=== PATIENT | female | born 1940 | race Caucasian/White ===

== ENCOUNTER → 2016-10-02 | Outpatient (CLI) | payer MEDICARE, OTHER ==
[~2016-10-02] MED LIST: ALLO100 PO; ALLO100T PO; ALTA5CAP4 PO; ASPI1TAB69 PO; CELE20TA PO; CITA10TA4 PO; CRAN250C PO; DOXY100C PO; FLUT50SP EACH NARE; HYDR12.57 PO; ISOS60TA PO; MIAC200S NASAL; MIRA33504 PO; MONT10TA2 PO; MULT-6 PO; NUTRPAK PO; PLAV75TA29 PO; POTA-243 PO; PRIL20CA9 PO; ROSU40 PO; SENN8.6T5 PO; TRAM50TA PO; VAGI10TA VAGINAL; VESI10TA PO; [UNRECOGNIZED DRUG - CODE] PO
[2016-10-02 16:55] LABS: ALT (GPT) 32 U/L (10-53); ANION GAP 8 MEQ/L (5-15); AST (GOT) 19 U/L (15-37); BICARBONATE 28.9 MEQ/L (21.0-32.0); BLOOD UREA NITROGEN 21 MG/DL (7-18); CHLORIDE 104 MEQ/L (98-107); GLOMERULAR FILTRATION RATE 55 ML/MIN (>89); GLUCOSE,FASTING 92 MG/DL (74-99); POTASSIUM 4.1 MEQ/L (3.5-5.1); SODIUM (NA) 141 MEQ/L (136-145)
[2016-10-02 16:59] LABS: ALKALINE PHOSPHATASE 62 U/L (45-117); HDL CHOLESTEROL 52.8 MG/DL (40.0-60.0); LDL CHOLESTEROL 60 MG/DL (0-99); TOTAL BILIRUBIN ADULT 0.3 MG/DL (0.2-1.0)
[2016-10-02 17:02] LABS: CREATINE KINASE 51 U/L (26-192)
== END ==
LOC: PLAB 12:07
PROVIDERS: ATTEND Internal Medicine Interventional Cardiology
DX: R06.02 Shortness of breath (principal); E78.5 Hyperlipidemia, unspecified; Z09 Encounter for follow-up examination after completed treatment for conditions other than malignant neoplasm; Z79.899 Other long term (current) drug therapy
CPT/HCPCS: 36415; 80053; 80061; 82248; 82550

== ENCOUNTER → 2016-11-26 | Outpatient (CLI) | payer MEDICARE, OTHER ==
[~2016-11-26] MED LIST changes: -ALLO100 PO
[2016-11-26 17:16] LABS: AUTOMATED NEUTROPHIL # 3.6 TH/MM3 (1.8-7.7); BASOPHIL # 0.1 TH/MM3 (0-0.2); EOSINOPHIL # 0.1 TH/MM3 (0-0.4); EOSINOPHIL % 2.2 % (0.0-4.0); HEMATOCRIT 37.3 % (35.0-46.0); HEMO FLAGS DIFF FINAL; LYMPHOCYTE # 1.9 TH/MM3 (1.0-4.8); MEAN CELL VOLUME 94.3 FL (80.0-100.0); MEAN CORPUSCULAR HEMOGLOBIN 33.6 PG (27.0-34.0); MEAN CORPUSCULAR HGB CONC 35.7 % (32.0-36.0); MONO % 10.6 % (0.0-8.0); NEUT % 57.2 % (16.0-70.0); PLATELET COUNT 234 TH/MM3 (150-450); RED BLOOD COUNT 3.96 MIL/MM3 (4.00-5.30); RED CELL DISTRIBUTION WIDTH 13.1 % (11.6-17.2); WHITE BLOOD COUNT 6.4 TH/MM3 (4.0-11.0)
[2016-11-26 17:34] LABS: ALT (GPT) 28 U/L (10-53); ANION GAP 10 MEQ/L (5-15); AST (GOT) 13 U/L (15-37); BICARBONATE 26.7 MEQ/L (21.0-32.0); BLOOD UREA NITROGEN 22 MG/DL (7-18); CHLORIDE 105 MEQ/L (98-107); GLUCOSE,FASTING 126 MG/DL (74-99); POTASSIUM 3.7 MEQ/L (3.5-5.1); SODIUM (NA) 142 MEQ/L (136-145)
[2016-11-26 17:39] LABS: ALKALINE PHOSPHATASE 56 U/L (45-117); GLOMERULAR FILTRATION RATE 48 ML/MIN (>89); TOTAL BILIRUBIN ADULT 0.3 MG/DL (0.2-1.0)
== END ==
LOC: PLAB 14:41
PROVIDERS: ATTEND Family Medicine
DX: R53.83 Other fatigue (principal); R19.7 Diarrhea, unspecified
CPT/HCPCS: 36415; 80053; 85025

== ENCOUNTER → 2017-02-18 | Outpatient (CLI) | payer MEDICARE, OTHER ==
[~2017-02-18] MED LIST changes: -CITA10TA4 PO; -CRAN250C PO; -NUTRPAK PO; -SENN8.6T5 PO; -VAGI10TA VAGINAL
[2017-02-18 13:28] LABS: CHLORIDE 105 MEQ/L (98-107); POTASSIUM 3.6 MEQ/L (3.5-5.1); SODIUM (NA) 143 MEQ/L (136-145)
[2017-02-18 13:32] LABS: ANION GAP 9 MEQ/L (5-15); BLOOD UREA NITROGEN 34 MG/DL (7-18); GLUCOSE,FASTING 100 MG/DL (74-99)
[2017-02-18 13:35] LABS: ALT (GPT) 27 U/L (10-53); AST (GOT) 13 U/L (15-37); GLOMERULAR FILTRATION RATE 37 ML/MIN (>89)
[2017-02-18 13:37] LABS: TOTAL BILIRUBIN ADULT 0.3 MG/DL (0.2-1.0)
[2017-02-18 13:38] LABS: ALKALINE PHOSPHATASE 69 U/L (45-117)
[2017-02-18 15:49] LABS: AUTOMATED NEUTROPHIL # 3.6 TH/MM3 (1.8-7.7); BASOPHIL % 0.6 % (0.0-2.0); EOSINOPHIL # 0.1 TH/MM3 (0-0.4); EOSINOPHIL % 1.9 % (0.0-4.0); HEMATOCRIT 33.4 % (35.0-46.0); HEMO FLAGS DIFF FINAL; LYMPH % 25.8 % (9.0-44.0); LYMPHOCYTE # 1.5 TH/MM3 (1.0-4.8); MEAN CELL VOLUME 92.8 FL (80.0-100.0); MEAN CORPUSCULAR HEMOGLOBIN 32.2 PG (27.0-34.0); MEAN CORPUSCULAR HGB CONC 34.7 % (32.0-36.0); MONO % 10.9 % (0.0-8.0); NEUT % 60.8 % (16.0-70.0); PLATELET COUNT 226 TH/MM3 (150-450); RED CELL DISTRIBUTION WIDTH 14.5 % (11.6-17.2)
[2017-02-18 17:38] LABS: HEMOGLOBIN A1a 1.4 %; HEMOGLOBIN A1b 2.1 %; HEMOGLOBIN Ao 82.6 %; HEMOGLOBIN LA1C 2.3 %; HEMOGLOBIN P3 6.4 %
[2017-02-21 23:54] LABS: LYME DISEASE 18KD IGG BAND NON-REACTIVE (()); LYME DISEASE 23 IGG BAND REACTIVE (()); LYME DISEASE 23KD IGM BAND NON-REACTIVE (()); LYME DISEASE 28KD IGG BAND NON-REACTIVE (()); LYME DISEASE 30KD IGG BAND REACTIVE (()); LYME DISEASE 39 KD IGG BAND NON-REACTIVE (()); LYME DISEASE 39KD IGM BAND NON-REACTIVE (()); LYME DISEASE 41KD IGG BAND REACTIVE (()); LYME DISEASE 41KD IGM BAND NON-REACTIVE (()); LYME DISEASE 45KD IGG BAND NON-REACTIVE (()); LYME DISEASE 58KD IGG BAND NON-REACTIVE (()); LYME DISEASE 66KD IGG BAND NON-REACTIVE (()); LYME DISEASE 93KD IGG BAND NON-REACTIVE (()); LYME DISEASE IGM WB NEGATIVE (())
== END ==
LOC: PLAB 11:23
PROVIDERS: ATTEND Family Medicine
DX: R53.81 Other malaise (principal); N18.3 Chronic kidney disease, stage 3 (moderate); E78.5 Hyperlipidemia, unspecified; R73.01 Impaired fasting glucose; I50.9 Heart failure, unspecified; W57.XXXA Bitten or stung by nonvenomous insect and other nonvenomous arthropods, initial encounter
CPT/HCPCS: 36415; 80053; 83036; 83880; 84443; 85025; 86617

== ENCOUNTER → 2017-03-13 | Outpatient (CLI) | payer MEDICARE, OTHER ==
[2017-03-13 13:28] LABS: BICARBONATE 28.2 MEQ/L (21.0-32.0); POTASSIUM 4.5 MEQ/L (3.5-5.1)
[2017-03-18 19:51] LABS: LYME DISEASE 18KD IGG BAND NON-REACTIVE (()); LYME DISEASE 23 IGG BAND REACTIVE (()); LYME DISEASE 23KD IGM BAND NON-REACTIVE (()); LYME DISEASE 28KD IGG BAND NON-REACTIVE (()); LYME DISEASE 30KD IGG BAND REACTIVE (()); LYME DISEASE 39 KD IGG BAND NON-REACTIVE (()); LYME DISEASE 39KD IGM BAND NON-REACTIVE (()); LYME DISEASE 41KD IGG BAND REACTIVE (()); LYME DISEASE 41KD IGM BAND NON-REACTIVE (()); LYME DISEASE 45KD IGG BAND NON-REACTIVE (()); LYME DISEASE 58KD IGG BAND NON-REACTIVE (()); LYME DISEASE 66KD IGG BAND NON-REACTIVE (()); LYME DISEASE 93KD IGG BAND NON-REACTIVE (()); LYME DISEASE IGM WB NEGATIVE (())
== END ==
LOC: PLAB 09:22
PROVIDERS: ATTEND Family Medicine
DX: A69.20 Lyme disease, unspecified (principal); E06.9 Thyroiditis, unspecified; N28.9 Disorder of kidney and ureter, unspecified
CPT/HCPCS: 36415; 80048; 84443; 86617

== ENCOUNTER → 2017-06-05 | Outpatient (CLI) | payer MEDICARE, OTHER ==
[~2017-06-05] MED LIST changes: -DOXY100C PO; +ESTR0.62 VAGINAL; +GABA300C5 PO; +LYRI100C PO
[2017-06-05 18:03] LABS: BACTERIA, URINE FEW /hpf; BLOOD, URINE MOD (NEG); GLUCOSE,URINE NEG (NEG); KETONE, URINE NEG (NEG); NITRITE,URINE NEG (NEG); SQUAMOUS EPITHELIAL CELL URINE 1 /hpf (0-5); URINE COLOR YELLOW (YELLW/STRAW)
== END ==
LOC: PLAB 14:36
PROVIDERS: ATTEND Urology
DX: R30.0 Dysuria (principal); R39.0 Extravasation of urine; B96.20 Unspecified Escherichia coli [E. coli] as the cause of diseases classified elsewhere
CPT/HCPCS: 81001; 87077; 87086; 87186

== ENCOUNTER → 2017-07-03 | Day surgery (SDC) | payer MEDICARE, OTHER ==
[~2017-07-03] MED LIST changes: +BUPIVACAINE HCL PF 0.75% 30 ML VIAL ONE; +IOHEXOL 180 MG/ML 20 ML VIAL (for RAD DIAG) IT ONE; +LIDOCAINE HCL 1% PF 30 ML VIAL INFIL ONE; +PROPOFOL 200 MG/20 ML AMP IV ONE; +TRIAMCINOLONE ACETONIDE 40 MG/ML VIAL NERV BLOCK ONE
--- NOTE | 2017-07-03 11:37 | M6 ---
cc: Gisel CLARK DATE 07/03/2017 DATE OF 1940 PROCEDURE Fluoroscopically guided superior hypogastric plexus block and ganglion IMPAR block. PROCEDURE NOTE History and physical was completed and signed. Consent was signed. Procedure site was marked. Medications were listed and reconciled. Pain score was recorded. Allergies were noted. Time out was taken. Fluoroscopy time was recorded where applicable. Sedation was administered or directed by Dr. Clark. The patient was given oxygen. The patient was monitored by a registered nurse. Total procedure time was greater than 15 minutes. IV was started, blood pressure cuff, pulse oximeter and EKG were applied. The patient was placed in the prone position on a Phillip table sedated with small amounts of propofol titrated to effect. Vital signs were monitored and remained stable throughout the procedure. The sacral and coccygeal area was prepped with alcohol and 10% Betadine solution and draped with sterile drapes. Fluoroscopy was used to visualize the sacrococcygeal ligament. Then a blunt bevel 22-gauge needle was advanced using [id number] technique through the sacrococcygeal ligament and into the retroperitoneal space. Omnipaque dye was seen to spread in a smooth linear fashion along the anterior surface of the sacrum all way up to L5. Then the patient was given 18 mL of Marcaine 0.375% which contained 40 mg of Kenalog. Following this, the patient was taken to the recovery room with stable vital signs neurologically intact. She will be evaluated immediately and with followup to determine if she has a subjective decrease in the usual pain and a corresponding objective increase in her functional capabilities. This patient has severe burning pain in her bladder with sharp stabbing pains when she urinates, so we will be talking with her tomorrow if there is a change in these symptoms. MD YSED Rodríguez/TODD /10:29 AM /11:25 AM
== END | disposition home or self-care (01) ==
LOC: PHSDC 08:33
PROVIDERS: ATTEND Pain Medicine Interventional Pain Medicine
DX: R39.89 Other symptoms and signs involving the genitourinary system (principal); R30.9 Painful micturition, unspecified
CPT/HCPCS: 64517; 77002; 99152; J3301; Q9965

== ENCOUNTER → 2017-07-09 | Outpatient (CLI) | payer MEDICARE, OTHER ==
[~2017-07-09] MED LIST changes: -BUPIVACAINE HCL PF 0.75% 30 ML VIAL ONE; -IOHEXOL 180 MG/ML 20 ML VIAL (for RAD DIAG) IT ONE; -LIDOCAINE HCL 1% PF 30 ML VIAL INFIL ONE; +MECL-62 PO; -PROPOFOL 200 MG/20 ML AMP IV ONE; -TRIAMCINOLONE ACETONIDE 40 MG/ML VIAL NERV BLOCK ONE
[2017-07-09 16:31] LABS: ALBUMIN 3.9 GM/DL (3.4-5.0); ALT (GPT) 39 U/L (10-53); AST (GOT) 20 U/L (15-37); BICARBONATE 27.1 MEQ/L (21.0-32.0); BLOOD UREA NITROGEN 31 MG/DL (7-18); CALCIUM 10.2 MG/DL (8.5-10.1); CHLORIDE 103 MEQ/L (98-107); CREATININE 1.12 MG/DL (0.50-1.00); GLOMERULAR FILTRATION RATE 47 ML/MIN (>89); GLUCOSE,FASTING 94 MG/DL (74-99); SODIUM (NA) 137 MEQ/L (136-145)
[2017-07-09 16:32] LABS: CHOLESTEROL 188 MG/DL (120-200); DIRECT BILIRUBIN ADULT 0.1 MG/DL (0.0-0.2); TRIGLYCERIDES 100 MG/DL (42-150)
[2017-07-09 16:35] LABS: ALKALINE PHOSPHATASE 75 U/L (45-117); CHOLESTEROL/ HDL RATIO 2.55 RATIO; HDL CHOLESTEROL 73.5 MG/DL (40.0-60.0); LDL CHOLESTEROL 95 MG/DL (0-99); TOTAL BILIRUBIN ADULT 0.2 MG/DL (0.2-1.0); TOTAL PROTEIN 8.3 GM/DL (6.4-8.2)
== END ==
LOC: PLAB 13:26
PROVIDERS: ATTEND Internal Medicine Interventional Cardiology
DX: I25.10 Atherosclerotic heart disease of native coronary artery without angina pectoris (principal); E78.5 Hyperlipidemia, unspecified; I10 Essential (primary) hypertension
CPT/HCPCS: 36415; 80053; 80061; 82248; 82550

== ENCOUNTER → 2017-07-29 | Outpatient (CLI) | payer MEDICARE, OTHER ==
[~2017-07-29] MED LIST changes: +KLOR10TA PO; -POTA-243 PO; -VESI10TA PO; +VESI10TA2 PO
[2017-07-29 16:18] LABS: BASOPHIL % 0.6 % (0.0-2.0); EOSINOPHIL # 0.2 TH/MM3 (0-0.4); EOSINOPHIL % 3.8 % (0.0-4.0); HEMO FLAGS DIFF FINAL; LYMPHOCYTE # 1.4 TH/MM3 (1.0-4.8); MEAN CELL VOLUME 92.8 FL (80.0-100.0); MEAN CORPUSCULAR HEMOGLOBIN 31.3 PG (27.0-34.0); MEAN CORPUSCULAR HGB CONC 33.8 % (32.0-36.0); MONO % 11.5 % (0.0-8.0); NEUT % 62.1 % (16.0-70.0); PLATELET COUNT 217 TH/MM3 (150-450); RED BLOOD COUNT 4.21 MIL/MM3 (4.00-5.30); RED CELL DISTRIBUTION WIDTH 14.2 % (11.6-17.2); WHITE BLOOD COUNT 6.4 TH/MM3 (4.0-11.0)
== END ==
LOC: PLAB 14:28
PROVIDERS: ATTEND Family Medicine
DX: K92.1 Melena (principal)
CPT/HCPCS: 36415; 85025

== ENCOUNTER → 2017-09-04 | Outpatient (CLI) | payer MEDICARE, OTHER ==
[2017-09-04 16:38] LABS: BASOPHIL % 0.6 % (0.0-2.0); EOSINOPHIL # 0.2 TH/MM3 (0-0.4); EOSINOPHIL % 2.2 % (0.0-4.0); HEMATOCRIT 36.5 % (35.0-46.0); HEMO FLAGS DIFF FINAL; LYMPHOCYTE # 1.7 TH/MM3 (1.0-4.8); MEAN CELL VOLUME 93.3 FL (80.0-100.0); MEAN CORPUSCULAR HEMOGLOBIN 31.4 PG (27.0-34.0); MEAN CORPUSCULAR HGB CONC 33.7 % (32.0-36.0); MONO % 14.1 % (0.0-8.0); NEUT % 58.1 % (16.0-70.0); PLATELET COUNT 282 TH/MM3 (150-450); RED BLOOD COUNT 3.92 MIL/MM3 (4.00-5.30); RED CELL DISTRIBUTION WIDTH 15.1 % (11.6-17.2); WHITE BLOOD COUNT 6.9 TH/MM3 (4.0-11.0)
[2017-09-04 16:51] LABS: ANION GAP 8 MEQ/L (5-15); AST (GOT) 12 U/L (15-37); BICARBONATE 27.5 MEQ/L (21.0-32.0); BLOOD UREA NITROGEN 21 MG/DL (7-18); CHLORIDE 103 MEQ/L (98-107); GLOMERULAR FILTRATION RATE 47 ML/MIN (>89); GLUCOSE,FASTING 90 MG/DL (74-99); POTASSIUM 3.6 MEQ/L (3.5-5.1); SODIUM (NA) 138 MEQ/L (136-145)
[2017-09-04 17:15] LABS: ALKALINE PHOSPHATASE 75 U/L (45-117); ALT (GPT) 19 U/L (10-53); HDL CHOLESTEROL 47.1 MG/DL (40.0-60.0); LDL CHOLESTEROL 167 MG/DL (0-99); TOTAL BILIRUBIN ADULT 0.3 MG/DL (0.2-1.0)
[2017-09-04 17:17] LABS: BACTERIA, URINE FEW /hpf; BLOOD, URINE LARGE (NEG); GLUCOSE,URINE NEG (NEG); KETONE, URINE NEG (NEG); MUCUS URINE FEW /lpf (OCC); NITRITE,URINE NEG (NEG); PH, URINE 6.5 (5.0-8.5); SQUAMOUS EPITHELIAL CELL URINE 24 /hpf (0-5); URINE COLOR LIGHT-GREEN (YELLW/STRAW)
[2017-09-04 17:35] LABS: HEMOGLOBIN A1a 2.4 %; HEMOGLOBIN A1b 1.8 %; HEMOGLOBIN Ao 83.5 %; HEMOGLOBIN LA1C 2.2 %; HEMOGLOBIN P3 5.5 %
== END ==
LOC: PLAB 13:03
PROVIDERS: ATTEND Internal Medicine Gastroenterology
DX: R10.819 Abdominal tenderness, unspecified site (principal); Z87.448 Personal history of other diseases of urinary system
CPT/HCPCS: 36415; 80053; 80061; 81001; 82306; 82607; 82746; 83036; 84443; 85025

== ENCOUNTER → 2017-10-01 | Outpatient (CLI) | payer MEDICARE, OTHER ==
[2017-10-01 16:41] LABS: CARCINOEMBRYONIC ANTIGEN 4.7 NG/ML (0.2-5.0)
[2017-10-01 17:14] LABS: CA 125 22.6 U/ML (0.0-30.2)
== END ==
LOC: PLAB 12:16
PROVIDERS: ATTEND Internal Medicine Gastroenterology
DX: R10.9 Unspecified abdominal pain (principal); R93.5 Abnormal findings on diagnostic imaging of other abdominal regions, including retroperitoneum; R63.4 Abnormal weight loss
CPT/HCPCS: 36415; 82105; 82378; 86304

== ENCOUNTER → 2017-11-11 | Day surgery (SDC) | payer MEDICARE, OTHER ==
[~2017-11-11] MED LIST changes: +BUPIVACAINE HCL PF 0.75% 30 ML VIAL ONE; +CYANOCOBALAMIN 1000 MCG/ML VIAL ONE; +PROPOFOL 200 MG/20 ML AMP IV ONE; +SODIUM CHLORIDE 0.9% 10 ML VIAL ONE; +TRIAMCINOLONE ACETONIDE 40 MG/ML VIAL NERV BLOCK ONE
--- NOTE | 2017-11-11 14:29 | M5 ---
cc: Gisel Clark MD DATE OF CONSULT: 11/11/2017 PROCEDURE: Bilateral pudendal nerve block. History and physical was completed and signed. Consent was signed. Procedure site was marked. Medications were listed and reconciled. Pain score was recorded. Allergies were noted. Time out was taken. Fluoroscopy time was recorded where applicable. Sedation was administered or directed by Dr. Clark. The patient was given oxygen. The patient was monitored by a registered nurse. Total procedure time was greater than 15 minutes. IV was started. Blood pressure cuff, pulse oximeter, and EKG were applied. The patient was placed in the supine position, sedated with small amounts of propofol, titrated to effect. Vital signs were monitored and remained stable throughout the procedure. The perineum was prepped with alcohol and Betadine. The ischial tuberosities were palpated on each side, then a 3-1/2 inch 22 gauge spinal needle was inserted down to contact the ischial tuberosity on each side and then redirected just medial to the ischial tuberosity. There was negative aspiration for blood or any other type of fluid and the patient was given 8 mL of Marcaine 0.75% which contained 20 mg of Kenalog and 1000 mcg of vitamin B12 at each location. Following this, the patient was taken to the recovery room with stable vital signs, neurologically intact. The patient will be evaluated immediately and will follow up to determine if she has a subjective decrease in her usual pain which is located around her labia and perineal area. If she does obtain significant relief, then I would talk with the patient about a trial of spinal cord stimulation. Gisel Clark MD WRM/TI/ , 07:40 AM , 12:17 PM
== END | disposition home or self-care (01) ==
LOC: PHSDC 06:29
PROVIDERS: ATTEND Pain Medicine Interventional Pain Medicine
DX: R10.9 Unspecified abdominal pain (principal); M54.5 Low back pain
CPT/HCPCS: 64430; 99152; J3301; J3420

== ENCOUNTER → 2017-12-15 | Outpatient (CLI) | payer MEDICARE, OTHER ==
[~2017-12-15] MED LIST changes: +ASPI1TAB57 PO; -BUPIVACAINE HCL PF 0.75% 30 ML VIAL ONE; +CALC200S NASAL; +CENTCHW4 CHEW; +CRAN200C2 PO; -CYANOCOBALAMIN 1000 MCG/ML VIAL ONE; +DILT-46 PO; +HYDR-3516 PO; +OMEP20TA93 PO; +POLY17S PO; -PROPOFOL 200 MG/20 ML AMP IV ONE; -SODIUM CHLORIDE 0.9% 10 ML VIAL ONE; -TRAM50TA PO; -TRIAMCINOLONE ACETONIDE 40 MG/ML VIAL NERV BLOCK ONE
[2017-12-15 14:20] LABS: AUTOMATED NEUTROPHIL # 4.1 TH/MM3 (1.8-7.7); BASOPHIL % 0.4 % (0.0-2.0); EOSINOPHIL # 0.1 TH/MM3 (0-0.4); EOSINOPHIL % 1.2 % (0.0-4.0); HEMOGLOBIN 9.8 GM/DL (11.6-15.3); LYMPHOCYTE # 1.7 TH/MM3 (1.0-4.8); MEAN CELL VOLUME 93.7 FL (80.0-100.0); MEAN CORPUSCULAR HEMOGLOBIN 29.6 PG (27.0-34.0); MEAN CORPUSCULAR HGB CONC 31.6 % (32.0-36.0); MEAN PLATELET VOLUME 7.2 FL (7.0-11.0); MONO % 8.9 % (0.0-8.0); MONOCYTE # 0.6 TH/MM3 (0-0.9); NEUT % 63.5 % (16.0-70.0); PLATELET COUNT 295 TH/MM3 (150-450); RED BLOOD COUNT 3.31 MIL/MM3 (4.00-5.30); RED CELL DISTRIBUTION WIDTH 14.9 % (11.6-17.2); WHITE BLOOD COUNT 6.5 TH/MM3 (4.0-11.0)
[2017-12-15 14:34] LABS: BILIRUBIN, URINE NEG (NEG); BLOOD, URINE LARGE (NEG); GLUCOSE,URINE NEG (NEG); KETONE, URINE NEG (NEG); NITRITE,URINE NEG (NEG); PH, URINE 6.5 (5.0-8.5); URINE COLOR YELLOW (YELLW/STRAW); URINE LEUKOCYTE ESTERASE LARGE (NEG)
[2017-12-15 14:47] LABS: WBC, URINE INNUM /hpf (0-5); WHITE BLOOD CELL CLUMPS FEW
[2017-12-15 14:48] LABS: BACTERIA, URINE FEW /hpf
[2017-12-15 14:49] LABS: SQUAMOUS EPITHELIAL CELL URINE 0-3 /hpf (0-5)
--- NOTE | 2017-12-16 16:18 | EKG ---
Date Performed: 12/15/2017 Time Performed: 13:50:11 PTAGE: 77 years EKG: Sinus rhythm WITH FIRST DEGREE AV BLOCK ABNORMAL ECG PREVIOUS TRACING : 01/05/2010 12.51 R-wave progression has improved since prior tracing, and no nspecific ST-T waves have also normalized. DOCTOR: Jerome Zhang Interpretating Date/Time 12/16/2017 16:15:19
== END ==
LOC: PHPRE 12:39
PROVIDERS: ATTEND Pain Medicine Interventional Pain Medicine
DX: Z01.812 Encounter for preprocedural laboratory examination (principal); Z01.810 Encounter for preprocedural cardiovascular examination; M54.5 Low back pain; R82.99 Other abnormal findings in urine
CPT/HCPCS: 36415; 81001; 84132; 85025; 87086; 93005

== ENCOUNTER → 2017-12-22 | Day surgery (SDC) | payer MEDICARE, OTHER ==
[~2017-12-22] VITALS: Ht 165.1 cm; Wt 63.0 kg
[~2017-12-22] MED LIST changes: +ACETAMINOPHEN/HYDROcodone 325 MG/5 MG TAB ONE; +BUPIVACAINE HCL PF 0.25% 30 ML VIAL ONE; +CHLORHEXIDINE GLUCONATE 2 % 1 PACK (2 CLOTHS) TOPICAL PRN; +LACTATED RINGER'S 1000 ML IV PRN; +LIDOCAINE 1%/EPINEPHrine 1:100,000 SOLN 30 ML VIAL ONE; +MEPERIDINE HCL 25 MG/ML VIAL IV ONE; +MEPERIDINE HCL 25 MG/ML VIAL ONE; +METOPROLOL TARTRATE 25 MG TAB PO PRN; +POVIDONE IODINE 5% (ANTISEPSIS KIT) 4 APPLICATIONS EACH NARE PRN; +PROPOFOL 200 MG/20 ML AMP ONE; +SODIUM CHLORID 0.9% 500 ML IV PRN; +SODIUM CHLORIDE 0.9% 20 ML VIAL ONE; +ceFAZolin 1,000 MG/NS 100 ML IV SCH
--- NOTE | 2017-12-22 14:03 | MP ---
cc: Gisel Clark MD DATE OF OPERATION: 12/22/2017 PROCEDURE PERFORMED: Implantation of Medtronic Octrode x 2 for spinal cord stimulation. 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 POSTPROCEDURE DIAGNOSIS: Pudendal neuralgia with intractable pain. DESCRIPTION OF PROCEDURE: IV was started in the holding area. The consent forms were signed. The patient was given IV antibiotics. The surgical site was marked. The patient was taken to the operating room and placed in the prone position. All pressure points were checked and padded. The patient was sedated by anesthesia. Her lumbar area was prepped with ChloraPrep and draped with sterile drapes. Fluoroscopy was used to visualize the L3-L4 interspace. The skin was infiltrated with 1% Xylocaine using a 27-gauge needle. Then, a modified Tuohy needle from the Medtronic kit was advanced into the epidural space using a loss of resistance technique and fluoroscopic guidance. One needle was placed slightly to the right of the midline, the other slightly to the left of the midline. Then, Medtronic Octrodes were threaded in a cephalad direction until the midportion of each Octrode was at the interspace between L1 and L2 vertebrae. Then, the patient was awakened and stimulation took place with multiple electrode combinations. On some of these, she felt some stimulation in her legs, but the middle electrode was giving her stimulation in the buttocks, the rectum and the labial area. This was in the area of her pain. Once optimal position had been ascertained, the patient was re-sedated. An incision had already been made around the Octrode leads and then each one was anchored to the interspinous ligament using a Silastic anchoring device circumferentially tied with two 2-0 Ethibond sutures around each device. Fluoroscopy was used to confirm the leads did not move during the anchoring process. Then, distal extension wires were connected to the stimulating leads by tightening screw and covering the connection with a Silastic cover, secured at both ends with two 2-0 Ethibond sutures. Then, impedance was checked at the bedside and found to be appropriate in all 16 of the electrodes. Then, the redundant Octrode leads and distal extension wires were coiled in a subcutaneous pocket in the lumbar midline and a tunneling device was used to tunnel the distal extension wires to exit on the patient's left flank. The incision was irrigated with Betadine. Closure took place with 3-0 Monocryl in the subcuticular tissue and 3-0 nylon on the skin. The incisions were covered with a sterile adhesive dressings, and the patient was taken to the recovery room with stable vital signs, neurologically intact. W. MD SYED Toribio/DANILO , 01:40 PM , 02:03 PM
--- NOTE | 2017-12-22 14:33 | RADRPT ---
EXAM DATE/TIME: 12/22/2017 12:56 [facility] COMPARISON: No previous studies available for comparison. INDICATIONS : Trial stimulator palcement in [place] MEDICAL HISTORY : None. SURGICAL HISTORY : None. ENCOUNTER: Initial ACUITY: 1 day PAIN SCORE: Non-responsive. LOCATION: Lumbar spine FINDINGS: Single AP view of the upper lumbar spine demonstrates spinal stimulator wires at the presumed L1-2 le zenon. CONCLUSION: 1. Spinal stimulator wires at presumed L1-2 level. Neville Mao MD on December 22, 2017 at 14:27 Board Certified Radiologist. This report was verified electronically.
[2017-12-22 14:35] VITALS: BP 135/55; PULSE 72; RESP 16; TEMP 97.9; O2SAT 95
== END | disposition home or self-care (01) ==
LOC: PHSDC 09:23
PROVIDERS: ATTEND Pain Medicine Interventional Pain Medicine
DX: M96.1 Postlaminectomy syndrome, not elsewhere classified (principal); G58.8 Other specified mononeuropathies; I10 Essential (primary) hypertension; I25.10 Atherosclerotic heart disease of native coronary artery without angina pectoris; Z95.1 Presence of aortocoronary bypass graft; Z98.1 Arthrodesis status
CPT/HCPCS: 00300; 63650; 63685; 72020; 76000; C1778; J0690; J2175; J3010; J7120

== ENCOUNTER → 2017-12-29 | Day surgery (SDC) | payer MEDICARE, OTHER ==
[~2017-12-29] VITALS: Ht 167.6 cm; Wt 62.5 kg
[~2017-12-29] MED LIST changes: -ACETAMINOPHEN/HYDROcodone 325 MG/5 MG TAB ONE; -ASPI1TAB69 PO; -BUPIVACAINE HCL PF 0.25% 30 ML VIAL ONE; +BUPIVACAINE/EPINEPHRINE 0.25% 50 ML VIAL ONE; +DEXAMETHASONE SOD PHOS 4 MG/ML VIAL ONE; -ESTR0.62 VAGINAL; -LIDOCAINE 1%/EPINEPHrine 1:100,000 SOLN 30 ML VIAL ONE; +LINA72CA PO; -LYRI100C PO; -MECL-62 PO; -MEPERIDINE HCL 25 MG/ML VIAL IV ONE; -MEPERIDINE HCL 25 MG/ML VIAL ONE; -MIAC200S NASAL; -MIRA33504 PO; -MULT-6 PO; -PLAV75TA29 PO; -PRIL20CA9 PO; -PROPOFOL 200 MG/20 ML AMP ONE; -SODIUM CHLORIDE 0.9% 20 ML VIAL ONE; +VANCOMYCIN HCL 500 MG ON-CALL/NS 100 ML IV SCH; -VESI10TA2 PO; -[UNRECOGNIZED DRUG - CODE] PO; +fentaNYL CITRATE 250 MCG/5 ML AMP ONE
[2017-12-29 14:51] VITALS: PULSE 68
--- NOTE | 2017-12-29 15:00 | MP ---
cc: Gisel Clark MD DATE OF OPERATION: 12/29/2017 DATE OF : 1940 PROCEDURE PERFORMED: Implantation of Medtronic dual channel rechargeable pulse generator for spinal cord stimulation. 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 POSTPROCEDURE DIAGNOSIS: Pudendal neuralgia with intractable pain. PROCEDURE NOTE: IV was started in the holding area. The patient was given IV antibiotics. Consent form was signed. The surgical site was marked. The patient was taken to the operating room, given general LMA anesthesia, placed in the right lateral decubitus position. All pressure points were checked and padded. Then, she was prepped with ChloraPrep and draped with sterile drapes and then also draped with an Ioban drape. The lumbar incision was infiltrated with 0.25% Marcaine containing epinephrine, another area in the patient's left subcostal area left upper quadrant was infiltrated. Then, the lumbar incision was opened. The distal extension wires were disconnected from the stimulating leads. Then, an incision was made in the patient's left subcostal area and a subcutaneous pocket was created. A tunneling device was used to tunnel the stimulating leads from the lumbar incision to the left subcostal incision. There they were connected to the Medtronics dual channel rechargeable pulse generator and impedance was checked at the bedside and found to be appropriate in all of the 16 electrodes. Then, each incision was irrigated with Betadine. The pulse generator was placed in the subcutaneous pocket with the letter side facing the skin and two 2-0 Ethibond sutures were used to anchor the pulse generator to the underlying fascia. Then, the incisions were closed with 3-0 Monocryl in the subcuticular tissue and 3-0 nylon on the skin and then the incisions were covered with Dermabond. The patient then was taken to the recovery room with stable vital signs, neurologically intact. MD SYED Rodríguez/DANILO , 02:38 PM , 02:59 PM
[2017-12-29 16:05] VITALS: BP 134/67; PULSE 80; RESP 16; TEMP 98.7; O2SAT 100
== END | disposition home or self-care (01) ==
LOC: PHSDC 10:29
PROVIDERS: ATTEND Pain Medicine Interventional Pain Medicine
DX: G58.8 Other specified mononeuropathies (principal); M96.1 Postlaminectomy syndrome, not elsewhere classified; I10 Essential (primary) hypertension; I25.119 Atherosclerotic heart disease of native coronary artery with unspecified angina pectoris; Z95.1 Presence of aortocoronary bypass graft; Z95.5 Presence of coronary angioplasty implant and graft
CPT/HCPCS: 00300; 63685; C1820; J0690; J1100; J3010; J3370; J7120